=== PATIENT | female | born 1985 | race Caucasian/White ===

== ENCOUNTER 2020-11-30 22:13 | Emergency (ER) | payer MEDICAID, SELFPAY ==
[2020-11-30 22:15] VITALS: BP 140/81; PULSE 81; RESP 16; TEMP 36.6; O2SAT 99; BMI 20.9
[2020-11-30 22:29] VITALS: O2SAT 99
--- NOTE | 2020-11-30 22:29 | EKG12_ITS ---
Test Reason : CP Blood Pressure : / mmHG Vent. Rate : 074 BPM Atrial Rate : 074 BPM P-R Int : 136 ms QRS Dur : 088 ms QT Int : 380 ms P-R-T Axes : 071 071 049 degrees QTc Int : 421 ms Normal sinus rhythm Incomplete right bundle branch block Confirmed by JACKI JOY, CIRO ([id number]), desk editor VENUS BURCIAGA ([id number]) on 12/04/2020 11:00:55 AM Referred By: KARI Confirmed By:CIRO ECHEVERRIA MD
--- NOTE | 2020-11-30 22:31 | ED.RN ---
NO OLD EKGS IN MUSE
--- NOTE | 2020-11-30 22:39 | EX.ED.DYSGE1 ---
HPI History of Present Illness Chief Complaint: Chest Pain Informant: patient Narrative Narrative: Patient is a 35-year-old previously healthy female who presents to the emergency department for intermittent chest pain and shortness of breath. Her symptoms have been present for the past 4 days. She has had these symptoms before in the past when she was diagnosed with pneumonia. She currently rates her pain as a 4 out of 10. It is over the left chest wall. She does not know aggravating or relieving factors. She has not been taking anything for this. She denies a cough. No fevers. She has had chills. No known sick contacts. No history of DVT/PE. No history of [place]. She denies any leg swelling or calf pain. No recent prolonged periods of immobility. She is a current every day smoker. She denies any radiation of the pain into her back, abdomen. She feels like this could all be stress related as she has been under a lot of new stressors lately. Patient has a low heart score. Her troponin is negative. This time I have very low concern for ACS, PE, aortic catastrophe, esophageal rupture. She does feel comfortable going home at this time with the negative work-up. She is going to follow-up with her PCP Thursday morning. Return precautions are reviewed with her including any worsening symptoms. She understands and is agreeable this plan. Will discharge home in stable condition. All questions were answered. [facility] Medical History Smoker Home Medications NK 11/30/20 [History Last Taken Unknown] Allergy/AdvReac Type Severity Reaction Status Date / Time ciprofloxacin [From Cipro] Allergy Hives Verified 11/30/20 22:18 Surgical History (Updated 11/30/20 @ 23:07 by Martha Pro) History of tonsillectomy Social History Smoking Status: Current every day smoker [facility] ED Constitutional Constitutional ED: Reports chills; Denies fever(s) Eyes Eyes: Denies change in vision ENT ENT ED: Denies epistaxis or rhinorrhea Cardiovascular Cardiovascular: Reports chest pain; Denies palpitations Respiratory/Chest Respiratory/Chest: Reports dyspnea; Denies cough or dyspnea on exertion Gastrointestinal Gastrointestinal: Denies abdominal pain, diarrhea, nausea or vomiting Genitourinary Genitourinary ED: Denies dysuria, hematuria or urinary frequency Musculoskeletal Musculoskeletal: Denies back pain or neck pain Integumentary Denies rash Neurologic Neurologic: Denies dizziness, headache(s) or weakness EXAM Physical Exam Const Vital Signs: 11/30/20 22:15 11/30/20 22:29 11/30/20 23:04 Temperature 98 F Temperature Source Temporal Pulse Rate 81 Respiratory Rate 16 Respiratory Effort Normal Non-Labored Blood Pressure 140/81 H Blood Pressure Mean 100 Pulse Ox 99 99 Oxygen Delivery Method Room Air Room Air 12/01/20 00:05 Temperature Temperature Source Pulse Rate 68 Respiratory Rate 18 Respiratory Effort Blood Pressure 101/64 Blood Pressure Mean Pulse Ox 99 Oxygen Delivery Method Positive well nourished and well developed General Appearance ED: well developed and NAD HEENT Reports normocephalic, head/scalp atraumatic and moist mucous membranes Eyes PERRL and EOMs intact bilaterally Neck no lymphadenopathy and supple General: Negative for tenderness Chest Wall inspection of chest normal and palpation of chest normal Resp normal respiratory effort and clear to auscultation bilaterally Auscultation: Negative for rales, rhonchi or wheezes Cardio regular rate, regular rhythm and no murmurs GI normal to inspection, nondistended, normoactive bowel sounds and non-tender Palpation: soft; Negative for guarding or rebound tenderness present Back/Spine no CVA tenderness Extremity normal to inspection General Extremety ED: Negative for edema or tenderness General Extremity: Negative for edema Neuro oriented x3, CN's II-XII intact bilaterally and no sensory deficits noted Sensorium / Orientation: alert Motor Exam: strength 5/5 throughout Psych mental status grossly normal Skin no rashes or lesions noted MDM MDM MDM Narrative Medical decision making narrative: Patient presents to the ED for intermittent chest pain and shortness of breath. On arrival to the emergency department she is satting 99% on room air and nontachycardic. She is PERC negative. I have low concern for PE. Will check chest x-ray, EKG and basic lab work. She has a benign physical exam and is resting comfortably in no respiratory distress. Lab Data Labs: Laboratory Results - last 24 hr 11/30/20 11/30/20 22:57 22:57 WBC 9.1 RBC 4.49 Hgb 13.6 Hct 40.5 MCV 90.2 MCH 30.3 MCHC 33.6 RDW Std Deviation 42.0 RDW Coeff of Florentin 12.7 Plt Count 333 MPV 9.3 Immature Gran % (Auto) 0.200 Neut % (Auto) 52.2 Lymph % (Auto) 38.7 [place] % (Auto) 5.6 Eos % (Auto) 2.3 Baso % (Auto) 1.0 Absolute Neuts (auto) 4.8 Absolute Lymphs (auto) 3.52 Nucleated RBC % 0 Sodium 139 Potassium 3.5 Chloride 106 Carbon Dioxide 28.0 Anion Gap 5 BUN 5 L Creatinine 0.70 Estim Creat Clear Calc 103.43 Est GFR (MDRD) Af Amer 120 Est GFR (MDRD) Non-Af 99 BUN/Creatinine Ratio 7.1 L Glucose 84 Calcium 8.7 Troponin I < 0.015 Radiography Chest X-Ray - ED: 2 View Diagnostic Testing: Radiology Impression Chest X-Ray 11/30/20 23:12 IMPRESSION: There is hyperinflation of the lungs. No consolidation or pulmonary edema. The immediate Electronically Signed: Hernandez Zamorano MD at 23:29 EDT , Service support , 2 view x-ray interpreted by myself. Clear lung rivas bilaterally. No effusion, consolidation appreciated. Normal cardiac silhouette. Normal mediastinum. No acute cardiopulmonary abnormality. EKG Initial EKG: Attestation: I personally reviewed and interpreted this EKG as follows: Comments: Rate of 74 bpm normal sinus rhythm. Normal intervals. Normal axis. No significant ST elevations or depressions. No T wave abnormalities. Discharge Plan Triage Chief Complaint: Chest Pain ED Provider: Miquel Beckett Dx/Rx/DC Orders Clinical Impression: Chest pain Instructions: ED Chest Pain, Uncertain Cause Prescriptions: No Action NK RF: 0 Stand Alone Forms: Work Status Form Primary Care Provider: [facility] Doctor,Out of Referrals: [facility] Doctor,Out of [Primary Care Provider] - 2 Days Disposition Disposition: Home, self care Discharge Date/Time: 12/01/20 00:11
[2020-11-30 23:09] LABS: Absolute Lymphocyte Count 3.52 X10^3/uL (0.83-4.51); Absolute Neutrophil Count 4.8 X10^3/uL (2.0-7.7); Basophil# 0.09 X10^3/uL; Eosinophil# 0.21 X10^3/uL; Eosinophils% 2.3 % (0-5); Hematocrit 40.5 % (37-47); Hemoglobin 13.6 g/dL (12.0-15.0); Lymphocyte # 3.52 X10^3/ul (0.83-4.51); Lymphocyte % 38.7 % (19-41); Mean Corp Hgb Conc 33.6 g/dL (32-36); Mean Corpuscular Hgb 30.3 pg (27.0-32.0); Mean Corpuscular Volume 90.2 fL (81-99); Mean Platelet Vol. 9.3 fl (6.2-12.0); Monocyte# 0.51 X10^3/uL; Monocyte% 5.6 % (0-10); NRBC Flagged by Analyzer 0 % (0-5); Neutrophil # 4.75 X10^3/uL (2.7-7.7); Neutrophil % 52.2 % (47-70); Platelet Count 333 K/mm3 (150-450); RBC Distribution Width CV 12.7 % (11.6-14.6); Red Blood Count 4.49 M/mm3 (4.2-5.4); White Blood Count 9.1 K/mm3 (4.4-11.0)
--- NOTE | 2020-11-30 23:12 | RAD_ITS ---
STUDY: X-RAY CHEST REASON FOR EXAM: Female, 35 years old. chest pain TECHNIQUE: PA and lateral views of the chest. COMPARISON: None. FINDINGS: There is hyperinflation of the lungs. No consolidation or pulmonary edema. There is no demonstrated pleural abnormality. Normal size heart. Normal mediastinum and aliza. Normal visualized pulmonary arteries. Normal visualized aortic arch and descending thoracic aorta. Normal visualized thoracic spine. Normal visualized ribs, clavicles, and shoulders. There is no demonstrated abnormality of the visualized soft tissue structures of the upper abdomen. RAD/Chest PA and Lateral IMPRESSION: There is hyperinflation of the lungs. No consolidation or pulmonary edema. The immediate Electronically Signed: Hernandez Zamorano MD at 23:29 EDT , Service support ,
[2020-11-30 23:30] LABS: Anion Gap 5 (5-15); BUN 5 mg/dL (7-18); BUN/Creat Ratio 7.1 RATIO (10-20); Calcium,Total 8.7 mg/dL (8.5-10.1); Chloride 106 mmol/L (98-107); EST Glomerular Filtration Rate 99 mL/min (>60); Est Glom Filt Rate - Afr Amer 120 mL/min (>60); Estimated Creatinine Clearance 103.43 ml/min; Glucose 84 mg/dL (74-106); Potassium 3.5 mmol/L (3.5-5.1); Sodium Level 139 mmol/L (136-145)
[2020-12-01 00:05] VITALS: BP 101/64; PULSE 68; RESP 18; O2SAT 99
== END 2020-12-01 00:11 | disposition home or self-care (01) ==
PROVIDERS: Emergency Provider Emergency Medicine
DX: R07.9 Chest pain, unspecified (principal); F17.200 Nicotine dependence, unspecified, uncomplicated
CPT/HCPCS: 71046; 80048; 84484; 85025; 93005; 99285; A4216

== ENCOUNTER 2022-01-07 00:11 | Emergency (ER) | payer MEDICAID, SELFPAY ==
[2022-01-07 00:12] VITALS: BP 121/76; PULSE 87; RESP 18; TEMP 36.4; O2SAT 100; BMI 20.6
--- NOTE | 2022-01-07 00:27 | EX.ED.DYSGE1 ---
HPI History of Present Illness Chief Complaint: Other, Pain/Inj Informant: patient Narrative Narrative: Presents after having a leave work for reported near syncope with pain from sunburn. [place] 2 days [place], forgot her sunscreen. Was burned felt pain that night and yesterday. Reports called to the ED yesterday's told to use Tylenol and continue oral fluids. She has been alternating Tylenol Motrin she has been drinking fluids. It is helping. However returned to work today on her feet hot [employer], states with the heat and pain sensation she had near syncopal episode. There is no chest pains. Currently back to normal. History of sunburns in the past. Edition is using aloe. Last dose of medicines was Tylenol 4 hours ago. Denies history of gastric ulcers or kidney injury. There is no blistering. Prior similar symptoms: Yes PFSH PFSH Medical History Smoker Medical History no medical history Home Medications bupropion HCl 300 mg PO DAILY 01/07/22 [History Last Taken Unknown] gabapentin 300 mg PO DAILY 01/07/22 [History Last Taken Unknown] Allergy/AdvReac Type Severity Reaction Status Date / Time ciprofloxacin [From Cipro] Allergy Hives Verified 01/07/22 00:15 Surgical History History of tonsillectomy Surgical History no surgical history Social History Smoking Status: Current every day smoker tobacco type: cigarettes ROS ROS ED Constitutional Constitutional ED: Denies chills, fever(s) or sweats Eyes Eyes: Denies change in vision ENT ENT ED: Denies dysphagia or sore throat Cardiovascular Cardiovascular: Denies chest pain, leg edema, palpitations or racing heartbeat Respiratory/Chest Respiratory/Chest: Denies cough, dyspnea or dyspnea on exertion Gastrointestinal Gastrointestinal: Denies abdominal pain, diarrhea, nausea or vomiting Genitourinary Genitourinary ED: Denies dysuria, hematuria or urinary frequency Musculoskeletal Musculoskeletal: Denies back pain, extremity pain or neck pain Integumentary Reports other Details: Sunburn ; Denies rash or wounds Neurologic Neurologic: Denies headache(s), paresthesias or weakness EXAM Physical Exam Const Vital Signs: 01/07/22 00:12 Temperature 97.6 F L Temperature Source Temporal Pulse Rate 87 Respiratory Rate 18 Blood Pressure 121/76 H Blood Pressure Mean 91 Pulse Ox 100 Oxygen Delivery Method Room Air Positive well nourished and well developed General Appearance ED: well developed and NAD HEENT Reports moist mucous membranes normocephalic and atraumatic Eyes PERRL, EOMs intact bilaterally and conjunctivae normal General Eye ED: Yes normal appearance of both eyes Neck no lymphadenopathy and supple General: Negative for tenderness Chest Wall Chest: Negative for tenderness Resp normal respiratory effort and normal air movement Effort and Inspection: symmetric chest movement; Negative for respiratory distress Cardio regular rate, regular rhythm and no murmurs Peripheral Pulses: pulses 2+ throughout GI normal to inspection, nondistended, normoactive bowel sounds and non-tender Palpation: Negative for guarding or rebound tenderness present Back/Spine no CVA tenderness and no thoracic nor lumbar tenderness Extremity normal to inspection General Extremety ED: Negative for edema or tenderness General Extremity: Negative for edema Neuro oriented x3, CN's II-XII intact bilaterally and no sensory deficits noted Sensorium / Orientation: awake and alert Skin Skin Narrative: DorsalRedness noted anterior distal leg, bilateral arms to the shoulder, anterior upper chest. There is no blistering. Minimal tenderness to palpation. Skin intact. Neuro vas intact distally. MDM MDM MDM Narrative Medical decision making narrative: Patient nontoxic vital stable no focal deficits. First-degree soriano from sunburn. Discussed vasovagal reaction likely from her discomfort and heat from work. She is given additional Motrin in the ED. She will continue with these medicines. She will continue aloe. Work note was given. Follow-up with her PCP. All questions were answered. Discharge Plan Triage Chief Complaint: Other, Pain/Inj ED Provider: Lan Dial Dx/Rx/DC Orders Clinical Impression: 1st degree sunburn, Vasovagal near syncope Instructions: ED Near-Fainting- Vagal Reaction, ED Burn, First-Degree Prescriptions: No Action gabapentin 300 mg capsule 300 mg PO DAILY RF: 0 bupropion HCl 300 mg tablet extended release 24 hr 300 mg PO DAILY RF: 0 Referrals: LIGHT,CARYL [Other] - 1 Week if not improving Disposition Disposition: Home, Self Care Discharge Date/Time: 01/07/22 00:35
[2022-01-07] MEDS: Ibuprofen 600 MG Tablet PO (00:32)
== END 2022-01-07 00:35 | disposition home or self-care (01) ==
LOC: ED 00:30
PROVIDERS: Emergency Provider Emergency Medicine; Visit Provider Emergency Medicine
DX: L55.0 Sunburn of first degree (principal); R55 Syncope and collapse; F17.210 Nicotine dependence, cigarettes, uncomplicated; Z79.899 Other long term (current) drug therapy
CPT/HCPCS: 99282

== ENCOUNTER 2022-02-03 23:02 | Emergency (ER) | payer MEDICAID, SELFPAY ==
[2022-02-03 23:03] VITALS: BP 110/69; PULSE 90; RESP 16; TEMP 36.8; O2SAT 98; BMI 20.3
--- NOTE | 2022-02-03 23:11 | ED.VIS.BACK ---
HPI History of Present Illness Chief Complaint: Back Detail of Chief Complaint: Back pain after bending over yesterday Informant: patient Onset/Context/Timing Onset: Yesterday Context: Sudden Onset Chronic pain exacerbated by: Bending over and feeling a pop Injury: bending Timing: Continuous Quality: Dull and Aching Location: Lumbar and Right Leg (Radiates to the popliteal fossa) Current Severity: Mild Maximum Severity: Severe Worsened by: improves with Movement, Ambulation, Bending and Lifting; worse with Night time pain Relieved by: Nothing Associated Symptoms Associated Symptoms: Radiation to Right Leg and - (Denies paresthesia or anesthesia in the perineal region); Negative for Numbness, Tingling, Radiation to Left Leg, Fever, Abdominal Pain, Dysuria, Unable to Ambulate, Unable to Transfer, Urinary Retention, Urinary Incontinence, Constipation or Fecal Incontinence Narrative Narrative: Patient is a 36-year-old female with history of degenerative disc disease, bulging disc and iliopsoas. She presents because of pain when she bent over yesterday. She felt a pop. She localizes the pain to the lumbar region. She states pain radiates posteriorly to the right popliteal fossa. She denies foot drop. She denies buckling of her knees. She denies bowel bladder dysfunction. She denies recent dental procedure. She denies fever or chills. She denies urologic symptoms. Patient states she relocated from [place]. Prior similar symptoms: Yes Recent Illness/Hospitalization: No PFSH PFSH Medical History Smoker Medical History no medical history Home Medications bupropion HCl 300 mg 24 hr tablet, extended release 300 mg PO DAILY 01/07/22 [History Last Taken Unknown] gabapentin 300 mg capsule 300 mg PO DAILY 01/07/22 [History Last Taken Unknown] hydrocodone-acetaminophen 5-325mg 5mg-325mg 1 tab PO Q6H PRN PRN Pain 3 days #10 TABLETS 02/03/22 [Rx Last Taken Unknown] naproxen 500 mg tablet 500 mg PO BID #14 tabs 02/03/22 [Rx Last Taken Unknown] Allergy/AdvReac Type Severity Reaction Status Date / Time ciprofloxacin [From Cipro] Allergy Hives Verified 02/03/22 23:04 Surgical History History of tonsillectomy Social History (Updated 07/04/22 @ 23:[address] Fan Santiago MD) household members: significant other Smoking Status: Current every day smoker tobacco type: cigarettes alcohol intake: current ROS ROS ED Constitutional Constitutional ED: Denies chills, fever(s), subjective, sweats or weight loss Gastrointestinal Gastrointestinal: Denies abdominal pain, constipation, diarrhea, melena, nausea or vomiting Genitourinary Genitourinary ED: Denies dysuria, hematuria or urinary frequency Musculoskeletal Musculoskeletal: Reports back pain; Denies arthralgias, myalgias or neck pain Neurologic Neurologic: Denies headache(s), paresthesias or weakness Hematologic/Lymphatic Hematologic/Lymphatic: Denies easy bleeding, easy bruising or lymphadenopathy EXAM Physical Exam Const Vital Signs: 02/03/22 23:03 Temperature 98.2 F Temperature Source Oral Pulse Rate 90 Respiratory Rate 16 Blood Pressure 110/69 Blood Pressure Mean 82 Pulse Ox 98 Oxygen Delivery Method Room Air Positive well nourished and well developed; Negative for obese, cachectic, contractures or unkempt Constitutional Narrative: Patient appears uncomfortable. General Appearance ED: well developed and NAD; Negative for unkempt, cachectic, contractures or pallor Nutritional Appearance: Negative for cachectic or obese HEENT Reports moist mucous membranes Negative for trauma or tenderness Eyes PERRL and EOMs intact bilaterally General Eye ED: Negative for pale conjunctiva or scleral icterus Neck no lymphadenopathy, supple and no JVD Resp normal respiratory effort and clear to auscultation bilaterally Cardio regular rate, regular rhythm, S1 normal heart sound and S2 normal heart sound GI normal to inspection, nondistended, normoactive bowel sounds, soft to palpation, non-tender and non-distended Back/Spine normal to inspection Back/Spine Narrative: Straight leg test is negative bilaterally. She complained of pain right and left paralumbar region at 45 degrees. There was no radicular pain. Bowstring test was negative. Cervical Spine: Negative for cervical spine tenderness and Negative for paracervical muscle tenderness Thoracic Spine / Upper Back: paraspinal muscle tenderness bilateral Lumbar Spine / Lower Back: ROM limited and straight leg raise negative bilaterally Extremity normal to inspection and no clubbing, cyanosis or edema General Extremety ED: Negative for edema or tenderness General Extremity: Negative for edema Neuro oriented x3 and no sensory deficits noted Neuro Narrative: Gait was observed with no foot drop. She is able to walk on her heels and toes. She is able to perform a 1 legged squat on the right and left side. Sensation over L3, L4 and L5 dermatome are normal. Sensorium / Orientation: alert Motor Exam: strength 5/5 throughout Deep Tendon Reflexes: Rt Patellar (L4): 2+, Lt Patellar (L4): 2+, Rt Ankle (S1): 2+ and Lt Ankle (S1): 2+ Deep Tendon Reflexes Back: Rt Patellar (L4): 2+, Lt Patellar (L4): 2+, Rt Ankle (S1): 2+ and Lt Ankle (S1): 2+ Plantar Reflex: Downgoing: bilateral (There is no clonus) Psych Appearance: Negative for unkempt Skin no rashes or lesions noted and no wounds General Skin Exam: Negative for jaundice or pallor MDM MDM MDM Narrative Medical decision making narrative: Patient was informed based on her history and physical exam this is [place] pain not due to herniated or bulging disc. Treatment is NSAIDs and opiates. She has no contraindication to NSAIDs. She was given first dose in the emergency department. Discharge Plan Triage Chief Complaint: Back ED Provider: Fan Santiago Dx/Rx/DC Orders Clinical Impression: Low back pain radiating to lower extremity, Degenerative disc disease, Scoliosis Instructions: ED Back Spasm, No Trauma Prescriptions: New hydrocodone-acetaminophen [hydrocodone-acetaminophen] 5-325 mg tablet 1 tab PO Q6H PRN PRN (Reason: Pain) 3 Days Qty: 10 0RF naproxen 500 mg tablet 500 mg PO BID Qty: 14 0RF No Action gabapentin 300 mg capsule 300 mg PO DAILY Label Comments: TAKE 1 CAPSULE BY MOUTH EVERY 8 HOURS bupropion HCl 300 mg tablet extended release 24 hr 300 mg PO DAILY Label Comments: TAKE 1 TABLET BY MOUTH ONCE DAILY Primary Care Provider: [facility] Doctor,Out of Referrals: [facility] Doctor,Out of [Primary Care Provider] - 3-5 Days if not improving Disposition Disposition: Home, Self Care
[2022-02-03] MEDS: HYDROcodone Bitartrate/Apap 5/325 Tablet PO (23:25)
[2022-02-03] MEDS: Naproxen 250 MG Tablet 500 MG PO (23:25)
== END 2022-02-03 23:27 | disposition home or self-care (01) ==
PROVIDERS: Emergency Provider Emergency Medicine; Visit Provider Emergency Medicine
DX: M54.50 Low back pain, unspecified (principal); M41.9 Scoliosis, unspecified; F17.210 Nicotine dependence, cigarettes, uncomplicated
CPT/HCPCS: 99283

== ENCOUNTER 2022-05-30 02:47 | Emergency (ER) | payer MEDICAID, SELFPAY ==
[2022-05-30 02:47] VITALS: BP 137/77; PULSE 86; RESP 15; TEMP 36.4; O2SAT 98; BMI 22.1
[2022-05-30] MEDS: predniSONE 20 MG Tablet 60 MG PO (04:37)
[2022-05-30] MEDS: Morphine 4 MG/ML Syringe IM (04:38)
--- NOTE | 2022-05-30 05:12 | EDS_ITS ---
HPI History of Present Illness Chief Complaint: Lower Extremity Injury Informant: patient Narrative Narrative: Patient is a 37 year old female presenting from home for worsening low back pain and right leg pain. Patient has a significant history of degenerative disc disease and bulging disc. She had an MRI in 2017 which showed bulging/herniated disc at L4, 5 and S1. She is following up with spine and is currently on gabapentin. She describes the pain as burning in nature. She states her pains been worsening over the past 2-1/2 months and she is trying to get approval from insurance to get MRI. She is trying to do physical therapy but her pain is gett ing so bad that she is having hard time doing it. She states for the past few days she cannot walk because it hurts too much to put weight on her right leg. She has been urinating less because she is in to much pain to get to the restroom. She is been taking meloxicam and Neurontin 600 mg 3 times daily with no relief of her pain. She previously had had Flexeril but ran out. She states on her right leg from the knee down sometimes it feels like it is asleep. Pain is worse when she is sitting or standing or weightbearing. She denies any saddle anesthesia. Denies any bowel or bladder incontinence. Denies any fever or chills. Denies any history of cancer or IV drug use. States she just cannot take the pain anymore which brought is what brought her to the emergency room. [facility] Medical History Chronic back pain Smoker Home Medications bupropion HCl 300 mg 24 hr tablet, extended release 300 mg PO DAILY 01/07/22 [History Last Taken Unknown] gabapentin 300 mg capsule 600 mg PO DAILY 01/07/22 [History Last Taken Unknown] cyclobenzaprine 10 mg tablet 10 mg PO TID PRN muscle spasm #14 tabs 05/30/22 [Rx Last Taken Unknown] meloxicam 15 mg tablet 15 mg PO DAILY 05/30/22 [History Last Taken Unknown] prednisone 20 mg tablet 40 mg PO DAILY #8 tabs 05/30/22 [Rx Last Taken Unknown] Allergy/AdvReac Type Severity Reaction Status Date / Time ciprofloxacin [From Cipro] Allergy Hives Verified 02/03/22 23:04 Surgical History History of tonsillectomy Social History household members: significant other Smoking Status: Current every day smoker tobacco type: cigarettes alcohol intake: current ROS ROS ED Constitutional Constitutional ED: Reports chills; Denies fever(s) Eyes Eyes: Denies change in vision ENT ENT ED: Denies rhinorrhea or sore throat Cardiovascular Cardiovascular: Denies chest pain Respiratory/Chest Respiratory/Chest: Denies cough Gastrointestinal Gastrointestinal: Denies abdominal pain, diarrhea or vomiting Genitourinary Genitourinary ED: Denies dysuria, hematuria or urinary frequency Musculoskeletal Musculoskeletal: Reports back pain and other Details: Right hip and leg pain Integumentary Denies rash Neurologic Neurologic: Reports paresthesias; Denies headache(s) or weakness Psychiatric Psychiatric: Denies anxiety Hematologic/Lymphatic Hematologic/Lymphatic: Denies easy bleeding or easy bruising EXAM Physical Exam Const Vital Signs: 05/30/22 02:47 05/30/22 05:17 Temperature 97.6 F L Temperature Source Temporal Pulse Rate 86 Respiratory Rate 15 18 Blood Pressure 137/77 H Blood Pressure Mean 97 Pulse Ox 98 Oxygen Delivery Method Room Air Positive well nourished and well developed General Appearance ED: well developed and NAD HEENT Reports moist mucous membranes Eyes PERRL and EOMs intact bilaterally Neck supple Neck Narrative: No meningeal signs Chest Wall inspection of chest normal and palpation of chest normal Resp normal respiratory effort and clear to auscultation bilaterally Cardio regular rate, regular rhythm and no murmurs GI normal to inspection, nondistended, normoactive bowel sounds Back/Spine no CVA tenderness Back/Spine Narrative: No midline tenderness. Tenderness palpation over the right gluteus/piriformis. Positive ipsilateral and contralateral straight leg test. 5/5 strength with plantar dorsiflexion of the feet. Sensation intact in the lower extremity. Extremity normal to inspection General Extremety ED: Negative for edema or tenderness General Extremity: Negative for edema Neuro oriented x3 and no sensory deficits noted Sensorium / Orientation: alert Motor Exam: strength 5/5 throughout Psych mental status grossly normal Skin no rashes or lesions noted and no wounds MDM MDM MDM Narrative Medical decision making narrative: Patient is evaluated for worsening of her chronic back pain. Pain is consistent with sciatica. Addition she likely has a component of piriformis inflammation. She has no red flag symptoms for cauda equina syndrome and has no neurologic deficits on physical exam. She is given a dose of IM morphine and started on a burst of prednisone. She has improvement of symptoms while in the emergency room. She will go home for outpatient follow-up. She is given a prescription for Flexeril as well. I do not think imaging is indicated at this time. Counseled on return precautions. Patient is hemodynamically stable. Discharged home in stable condition. Discharge Plan Triage Chief Complaint: Lower Extremity Injury ED Provider: Holly Dodson Dx/Rx/DC Orders Clinical Impression: Sciatica of right side, Low back pain Instructions: ED Sciatica Prescriptions: New cyclobenzaprine 10 mg tablet 10 mg PO TID PRN (Reason: muscle spasm) Qty: 14 0RF prednisone 20 mg tablet 40 mg PO DAILY Qty: 8 0RF No Action gabapentin 300 mg capsule 600 mg PO DAILY Label Comments: TAKE 1 CAPSULE BY MOUTH EVERY 8 HOURS bupropion HCl 300 mg tablet extended release 24 hr 300 mg PO DAILY Label Comments: TAKE 1 TABLET BY MOUTH ONCE DAILY meloxicam 15 mg Tablet 15 mg PO DAILY Primary Care Provider: CARYL DOE Referrals: CARYL DOE [Other] Disposition Disposition: Home, Self Care Discharge Date/Time: 05/30/22 05:18
[2022-05-30 05:17] VITALS: RESP 18
== END 2022-05-30 05:18 | disposition home or self-care (01) ==
PROVIDERS: Emergency Provider Emergency Medicine; Visit Provider Emergency Medicine
DX: M54.31 Sciatica, right side (principal); M54.50 Low back pain, unspecified; F17.210 Nicotine dependence, cigarettes, uncomplicated; G89.29 Other chronic pain; Z79.899 Other long term (current) drug therapy
CPT/HCPCS: 96372; 99283